=== PATIENT | female | born 1945 | race Caucasian/White ===

== ENCOUNTER 2017-05-18 13:51 | Emergency (ER) | payer MEDICARE, MEDICAID ==
[2017-05-18 14:09] VITALS: BP 170/59
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
== END 2017-05-18 15:06 | disposition home or self-care (01) ==
LOC: UCCORT 13:51
DX: S41.111A Laceration without foreign body of right upper arm, initial encounter (principal); S80.812A Abrasion, left lower leg, initial encounter; W18.39XA Other fall on same level, initial encounter; Y93.89 Activity, other specified; Y92.9 Unspecified place or not applicable; E07.9 Disorder of thyroid, unspecified; E78.5 Hyperlipidemia, unspecified; I51.9 Heart disease, unspecified; I10 Essential (primary) hypertension; G20 Parkinson's disease; Z90.710 Acquired absence of both cervix and uterus; Z96.641 Presence of right artificial hip joint
CPT/HCPCS: 99213; G0463

== ENCOUNTER 2018-01-26 14:49 | Emergency (ER) | payer MEDICARE, MEDICAID ==
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
[2018-01-26 15:31] VITALS: BP 109/54
== END 2018-01-26 16:12 | disposition home or self-care (01) ==
LOC: UCCORT 14:49
DX: S70.11XA Contusion of right thigh, initial encounter (principal); X58.XXXA Exposure to other specified factors, initial encounter; Y93.9 Activity, unspecified; Y92.9 Unspecified place or not applicable; E03.9 Hypothyroidism, unspecified; G20 Parkinson's disease; G30.9 Alzheimer's disease, unspecified; F02.80 Dementia in other diseases classified elsewhere, unspecified severity, without behavioral disturbance, psychotic disturbance, mood disturbance, and anxiety; E55.9 Vitamin D deficiency, unspecified; I10 Essential (primary) hypertension; K21.9 Gastro-esophageal reflux disease without esophagitis
CPT/HCPCS: 99212; G0463